=== PATIENT | female | born 1950 | race Caucasian/White ===

== ENCOUNTER → 2017-04-12 | Outpatient (CLI) | payer MEDICARE, OTHER ==
--- NOTE | 2017-04-15 10:00 | RAD ---
DATE: 04/12/2017 EXAM: MAMMO FARHAD SCREENING BILATERAL HISTORY: Asymptomatic screening mammogram. COMPARISON: Prior mammogram from 03/16/2016, 06/30/2010 This study was interpreted with the benefit of Computerized Aided Detection (CAD). The breast parenchyma shows scattered fibroglandular densities. Breast parenchyma level B. FINDINGS: Bilateral CC and MLO views of the breasts were performed. 3-D tomosynthesis of each breast was performed in CC and MLO projections. Right breast: There are no suspicious microcalcifications, masses or areas of architectural distortion. Left breast: There are no suspicious microcalcifications, masses or areas of architectural distortion. Findings are stable from prior mammogram. IMPRESSION: Negative bilateral mammogram. BI-RADS CATEGORY: 1 NEGATIVE RECOMMENDED FOLLOW-UP: 12M 12 MONTH FOLLOW-UP PQRS compliance statement: Patient information was entered into a reminder system with a target due date 04/12/2018 for the next mammogram. Mammography is a sensitive method for finding small breast cancers, but it does not detect them all and is not a substitute for careful clinical examination. A negative mammogram does not negate a clinically suspicious finding and should not result in delay in biopsying a clinically suspicious abnormality. "Our facility is accredited by the [employer] Mammography Program."
== END | disposition home or self-care (01) ==
LOC: MAMMO 15:16
PROVIDERS: ATTEND Physician Assistant Medical
DX: Z12.31 Encounter for screening mammogram for malignant neoplasm of breast (principal)
CPT/HCPCS: 77063; 77067

== ENCOUNTER → 2017-06-28 | Outpatient (CLI) | payer MEDICARE, OTHER ==
[2017-06-28 12:37] LABS: BASO % 1 % (0-3); EOS # 0.6 x10^3/uL (0.0-0.7); EOS % 11 % (0-3); HEMATOCRIT 44.2 % (36.0-47.0); HEMOGLOBIN 15.3 g/dL (12.0-15.5); LYMPH # 1.3 x10^3/uL (1.0-4.8); LYMPH % 21 % (24-48); MEAN CORPUSCULAR HEMOGLOBIN 35 pg (25-35); MEAN CORPUSCULAR HGB CONC 35 g/dL (31-37); MEAN CORPUSCULAR VOLUME 100 fL (79-100); MONO # 0.4 x10^3/uL (0.0-1.1); MONO % 7 % (0-9); NEUT # 3.7 x10^3uL (1.8-7.7); NEUT % 61 % (31-73); PLATELET COUNT 322 x10^3/uL (140-400); RED BLOOD COUNT 4.42 x10^6/uL (3.50-5.40); RED CELL DISTRIBUTION WIDTH 12.9 % (11.5-14.5); WHITE BLOOD COUNT 6.1 x10^3/uL (4.0-11.0)
[2017-06-28 12:46] LABS: ALBUMIN 3.7 g/dL (3.4-5.0); ALBUMIN/GLOBULIN RATIO 0.8 (1.0-1.7); CALCIUM 10.6 mg/dL (8.5-10.1); CREATININE 0.8 mg/dL (0.6-1.0); POTASSIUM 4.1 mmol/L (3.5-5.1); TOTAL BILIRUBIN 0.5 mg/dL (0.2-1.0); TOTAL PROTEIN 8.3 g/dL (6.4-8.2)
[2017-06-30 13:11] LABS: HCV ULTRA QUANT PCR HCV Not Detected IU/mL (.)
== END | disposition home or self-care (01) ==
LOC: LAB 11:05
PROVIDERS: ATTEND Internal Medicine Gastroenterology
DX: B19.20 Unspecified viral hepatitis C without hepatic coma (principal)
CPT/HCPCS: 36415; 80053; 85025; 87521

== ENCOUNTER 2017-08-18 07:32 | Emergency (ER) | payer MEDICARE, OTHER ==
[~2017-08-18] VITALS: Ht 157.5 cm; Wt 72.6 kg
[2017-08-18 07:42] VITALS: BP 132/90
[2017-08-18] MEDS ORDERED: IV NORMAL SALINE 1,000ML 1,000 ML IV ONE (08:00)
--- NOTE | 2017-08-18 08:15 | ED.ADGEN ---
Past History Past Medical History: Anxiety, Hypertension, Hepatitis Past Surgical History: Tonsillectomy, Tubal ligation Alcohol Use: None Drug Use: None Adult General HPI HPI Patient is a 66 year old female who presents with dizziness and nausea. She had onset of symptoms yesterday. Her symptoms began suddenly. She describes vertiginous symptoms that do precipitate some nausea. She had a couple episodes of emesis described to be green liquid. She did not have chest pain or shortness of breath. She did not have any recent illness. She does have a known history of hepatitis C and is currently treated. She does also describe a occipital headache that began along the same time. Her symptoms are positional. She does have some relief when she holds still or lays down but she does also have intermittent symptoms of vertigo while at rest. Review of Systems Review of Systems Constitutional: Denies fever or chills Eyes: Denies change in visual acuity HENT: Denies nasal congestion or sore throat Respiratory: Denies cough or shortness of breath Cardiovascular: No additional information not addressed in HPI GI: Denies abdominal pain : Denies dysuria or hematuria Musculoskeletal: Denies back pain Integument: Denies rash or skin lesions Neurologic: Denies headache, focal weakness All other systems were reviewed and found to be within normal limits, except as documented in this note. Current Medications Current Medications Current Medications Medications (Trade) Dose Ordered Sig/Deirdre Start Time Stop Time Status Last Admin Dose Admin Diphenhydramine HCl (Benadryl) 12.5 mg 1X ONCE 08/18/17 08:20 08/18/17 08:22 DC 08/18/17 08:13 12.5 MG Iohexol (Omnipaque 300 Mg/ml) 75 ml 1X ONCE 08/18/17 09:00 08/18/17 09:01 DC 08/18/17 09:04 75 ML Prochlorperazine Edisylate (Compazine) 10 mg 1X ONCE 08/18/17 08:20 08/18/17 08:22 DC 08/18/17 08:13 10 MG Sodium Chloride 1,000 ml @ 1,000 mls/hr 1X ONCE 08/18/17 08:00 08/18/17 08:59 DC 08/18/17 08:14 1,000 MLS/HR Allergies Allergies Allergies Coded Allergies Type Severity Reaction Last Updated Verified No Known Drug Allergies 08/06/14 No Physical Exam Physical Exam Constitutional: Well developed, well nourished, no acute distress HENT: Normocephalic, atraumatic, bilateral external ears normal, oropharynx moist, TM's joy, intact with light reflex Eyes: PERRLA, EOMI, conjunctiva normal, no discharge Neck: Normal range of motion, no tenderness, supple Cardiovascular:Heart rate regular rhythm, no murmur Lungs & Thorax: Bilateral breath sounds clear to auscultation Abdomen: Bowel sounds normal, soft Skin: Warm, dry, no erythema Extremities: no edema Neurologic: Alert and oriented X 3, CN II-XII intact bilaterally. Finger-to- nose intact. Normal steady gait Psychologic: Affect normal Current Patient Data Vital Signs Vital Signs Date Time Temp Pulse Resp B/P (MAP) Pulse Ox O2 Delivery O2 Flow Rate FiO2 08/18/17 07:42 97.8 72 20 93 Room Air Lab Results Laboratory Tests Test 08/18/17 08:00 White Blood Count 7.2 x10^3/uL (4.0-11.0) Red Blood Count 4.61 x10^6/uL (3.50-5.40) Hemoglobin 16.2 g/dL (12.0-15.5) H Hematocrit 45.7 % (36.0-47.0) Mean Corpuscular Volume 99 fL (79-100) Mean Corpuscular Hemoglobin 35 pg (25-35) Mean Corpuscular Hemoglobin Concent 35 g/dL (31-37) Red Cell Distribution Width 15.1 % (11.5-14.5) H Platelet Count 330 x10^3/uL (140-400) Neutrophils (%) (Auto) 80 % (31-73) H Lymphocytes (%) (Auto) 13 % (24-48) L Monocytes (%) (Auto) 6 % (0-9) Eosinophils (%) (Auto) 0 % (0-3) Basophils (%) (Auto) 1 % (0-3) Neutrophils # (Auto) 5.8 x10^3uL (1.8-7.7) Lymphocytes # (Auto) 0.9 x10^3/uL (1.0-4.8) L Monocytes # (Auto) 0.4 x10^3/uL (0.0-1.1) Eosinophils # (Auto) 0.0 x10^3/uL (0.0-0.7) Basophils # (Auto) 0.1 x10^3/uL (0.0-0.2) Sodium Level 135 mmol/L (136-145) L Potassium Level 3.7 mmol/L (3.5-5.1) Chloride Level 101 mmol/L (98-107) Carbon Dioxide Level 27 mmol/L (21-32) Anion Gap 7 (6-14) Blood Urea Nitrogen 14 mg/dL (7-20) Creatinine 0.9 mg/dL (0.6-1.0) Estimated GFR (Cockcroft-Gault) 62.8 Glucose Level 137 mg/dL (70-99) H Calcium Level 10.4 mg/dL (8.5-10.1) H EKG EKG [] Radiology/Procedures Radiology/Procedures Findings: Brain: The joy and white matter appears symmetrical. There is no mass effect, extra-axial fluid collections or hydrocephalus. There is no gross bleed. Distal carotid arteries: normal caliber Vertebral basilar system normal Major cerebral arteries: normal Impression: no acute findings end impression CTA neck with contrast: Findings: Aortic arch and origin of great vessels: The left common carotid artery arises from a common trunk with the brachiocephalic artery. Common carotid arteries: Right: normal Left: normal Internal carotid arteries: Right: normal Left: normal Vertebral basilar system normal Impression: No significant stenosis. Course & Med Decision Making Course & Med Decision Making Pertinent Labs and Imaging studies reviewed. (See chart for details) Patient is seen and examined. She does present with symptoms that seem primarily most consistent with benign positional vertigo. Dunn-Hallpike maneuver was performed and she did have ice diagnosis bilaterally although it was with a fast her pulse to the right and lasted longer to the right. After several maneuvers, the nystatin this was definitely fatigable. The maneuver also did precipitate her symptoms. Head impulse tests, however, was normal. The patient did not have any nystagmus or changes with this test. Negative head impulse tests decreases likelihood for peripheral lesion as a source for the patient's symptoms. Subsequently, and because the patient was having occipital headache, CT angiogram of the head and neck were completed. This study was negative and as documented above. Ultimately, the patient's symptoms were much improved after a dose of Compazine and Benadryl in the ER. She received 1 L of normal saline. She was discharged home with a prescription for meclizine to use as needed for vertiginous symptoms. She is advised to follow-up with her primary care doctor or return to the ER for any new or worsening symptoms. Final Impression Final Impression Vertigo Ana Disclaimer Dragon Disclaimer This electronic medical record was generated, in whole or in part, using a voice recognition dictation system. WILLY HARRIS DO Aug 18, 2017 08:15
[2017-08-18 08:17] LABS: BASO # 0.1 x10^3/uL (0.0-0.2); BASO % 1 % (0-3); EOS % 0 % (0-3); HEMATOCRIT 45.7 % (36.0-47.0); HEMOGLOBIN 16.2 g/dL (12.0-15.5); LYMPH # 0.9 x10^3/uL (1.0-4.8); LYMPH % 13 % (24-48); MEAN CORPUSCULAR HEMOGLOBIN 35 pg (25-35); MEAN CORPUSCULAR HGB CONC 35 g/dL (31-37); MEAN CORPUSCULAR VOLUME 99 fL (79-100); MONO # 0.4 x10^3/uL (0.0-1.1); MONO % 6 % (0-9); NEUT # 5.8 x10^3uL (1.8-7.7); NEUT % 80 % (31-73); PLATELET COUNT 330 x10^3/uL (140-400); RED BLOOD COUNT 4.61 x10^6/uL (3.50-5.40); RED CELL DISTRIBUTION WIDTH 15.1 % (11.5-14.5); WHITE BLOOD COUNT 7.2 x10^3/uL (4.0-11.0)
[2017-08-18] MEDS ORDERED: diphenhydrAMINE 50 MG/ML VIAL IVP ONE (08:20)
[2017-08-18] MEDS ORDERED: PROCHLORPERAZINE 10 MG/2 ML VIAL. IV ONE (08:20)
[2017-08-18 08:24] LABS: CALCIUM 10.4 mg/dL (8.5-10.1); CREATININE 0.9 mg/dL (0.6-1.0); GFR 62.8; POTASSIUM 3.7 mmol/L (3.5-5.1)
[2017-08-18] MEDS ORDERED: IOHEXOL 300 MG/ML 75 ML VIAL. IV ONE (09:00)
--- NOTE | 2017-08-18 09:37 | RAD ---
CTA head and CTA neck with contrast History: Headache and dizziness with vertigo Technique: Axial images were obtained of the head and neck after the intravenous administration of 75 mL of Omni 300 IV contrast. Multiplanar reconstruction was performed on an independent work station including MIP imaging and 3D angiographic imaging. Comparison: none CTA head with contrast. Findings: Brain: The joy and white matter appears symmetrical. There is no mass effect, extra-axial fluid collections or hydrocephalus. There is no gross bleed. Distal carotid arteries: normal caliber Vertebral basilar system normal Major cerebral arteries: normal Impression: no acute findings end impression CTA neck with contrast: Findings: Aortic arch and origin of great vessels: The left common carotid artery arises from a common trunk with the brachiocephalic artery. Common carotid arteries: Right: normal Left: normal Internal carotid arteries: Right: normal Left: normal Vertebral basilar system normal Impression: No significant stenosis. PQRS Compliance Statement - Stenosis calculations for CT, MR and conventional angiography are based upon measurement of the distal ICA diameter in accordance with the NASCET methodology. Stenosis calculations for carotid ultrasound studies are derived from validated velocity criteria which are known to correlate with the NASCET methodology. PQRS Compliance Statement: One or more of the following individualized dose reduction techniques were utilized for this examination: 1. Automated exposure control 2. Adjustment of the mA and/or kV according to patient size 3. Use of iterative reconstruction technique Electronically signed by: Lamin Peoples III, MD (08/18/2017 9:34 AM) [facility]
[2017-08-18] MEDS ORDERED: MECL25TA3 PO (09:48)
== END 2017-08-18 09:58 | disposition home or self-care (01) ==
LOC: ER 07:32
DX: R42 Dizziness and giddiness (principal); R11.2 Nausea with vomiting, unspecified; R51 Headache; F41.9 Anxiety disorder, unspecified; I10 Essential (primary) hypertension
CPT/HCPCS: 36415; 70496; 70498; 80048; 85025; 96361; 96374; 96375; 99285; J0780; J1200; Q9967; J7030

== ENCOUNTER → 2017-08-18 | Outpatient (CLI) | payer MEDICARE, OTHER ==
[~2017-08-18] MED LIST: MECL25TA3 PO
[2017-08-18 07:42] VITALS: BP 132/90
[2017-08-18 09:39] LABS: BASO % 1 % (0-3); EOS % 0 % (0-3); HEMATOCRIT 46.1 % (36.0-47.0); HEMOGLOBIN 16.2 g/dL (12.0-15.5); LYMPH # 0.9 x10^3/uL (1.0-4.8); LYMPH % 12 % (24-48); MEAN CORPUSCULAR HEMOGLOBIN 35 pg (25-35); MEAN CORPUSCULAR HGB CONC 35 g/dL (31-37); MEAN CORPUSCULAR VOLUME 99 fL (79-100); MONO # 0.4 x10^3/uL (0.0-1.1); MONO % 6 % (0-9); NEUT # 5.9 x10^3uL (1.8-7.7); NEUT % 81 % (31-73); PLATELET COUNT 345 x10^3/uL (140-400); RED BLOOD COUNT 4.67 x10^6/uL (3.50-5.40); RED CELL DISTRIBUTION WIDTH 14.9 % (11.5-14.5); WHITE BLOOD COUNT 7.3 x10^3/uL (4.0-11.0)
[2017-08-18 09:44] LABS: ALBUMIN 4.1 g/dL (3.4-5.0); ALBUMIN/GLOBULIN RATIO 0.9 (1.0-1.7); CALCIUM 10.3 mg/dL (8.5-10.1); CREATININE 0.9 mg/dL (0.6-1.0); GFR 62.8; POTASSIUM 3.7 mmol/L (3.5-5.1); TOTAL BILIRUBIN 0.6 mg/dL (0.2-1.0); TOTAL PROTEIN 8.5 g/dL (6.4-8.2)
[2017-08-20 17:16] LABS: HCV ULTRA QUANT PCR HCV Not Detected IU/mL (.)
== END | disposition home or self-care (01) ==
LOC: LAB 08:34
PROVIDERS: ATTEND Internal Medicine Gastroenterology
DX: B19.20 Unspecified viral hepatitis C without hepatic coma (principal)
CPT/HCPCS: 36415; 80053; 85025; 87521

== ENCOUNTER → 2017-12-10 | Outpatient (CLI) | payer MEDICARE, OTHER ==
[2017-12-10 15:07] LABS: ALBUMIN 3.9 g/dL (3.4-5.0); CALCIUM 10.3 mg/dL (8.5-10.1); GFR 55.5; POTASSIUM 4.2 mmol/L (3.5-5.1); TOTAL BILIRUBIN 0.3 mg/dL (0.2-1.0); TOTAL PROTEIN 7.8 g/dL (6.4-8.2)
[2017-12-10 15:10] LABS: BASO % 1 % (0-3); EOS # 0.2 x10^3/uL (0.0-0.7); EOS % 3 % (0-3); HEMOGLOBIN 14.4 g/dL (12.0-15.5); LYMPH % 18 % (24-48); MEAN CORPUSCULAR HEMOGLOBIN 35 pg (25-35); MEAN CORPUSCULAR HGB CONC 34 g/dL (31-37); MEAN CORPUSCULAR VOLUME 102 fL (79-100); MONO # 0.4 x10^3/uL (0.0-1.1); MONO % 6 % (0-9); NEUT % 72 % (31-73); PLATELET COUNT 291 x10^3/uL (140-400); RED BLOOD COUNT 4.12 x10^6/uL (3.50-5.40); RED CELL DISTRIBUTION WIDTH 13.4 % (11.5-14.5); WHITE BLOOD COUNT 5.6 x10^3/uL (4.0-11.0)
== END | disposition home or self-care (01) ==
LOC: LAB 13:56
PROVIDERS: ATTEND Internal Medicine Gastroenterology
DX: B19.20 Unspecified viral hepatitis C without hepatic coma (principal)
CPT/HCPCS: 80053; 85025

== ENCOUNTER 2018-04-12 15:30 | Emergency (ER) | payer MEDICARE, OTHER ==
[~2018-04-12] VITALS: Ht 157.5 cm; Wt 72.0 kg
[2018-04-12 16:21] LABS: BASO # 0.1 x10^3/uL (0.0-0.2); BASO % 1 % (0-3); EOS # 0.2 x10^3/uL (0.0-0.7); EOS % 2 % (0-3); HEMATOCRIT 48.3 % (36.0-47.0); HEMOGLOBIN 16.5 g/dL (12.0-15.5); LYMPH % 9 % (24-48); MEAN CORPUSCULAR HEMOGLOBIN 35 pg (25-35); MEAN CORPUSCULAR HGB CONC 34 g/dL (31-37); MEAN CORPUSCULAR VOLUME 101 fL (79-100); MONO # 0.6 x10^3/uL (0.0-1.1); MONO % 6 % (0-9); NEUT # 8.7 x10^3uL (1.8-7.7); NEUT % 82 % (31-73); PLATELET COUNT 394 x10^3/uL (140-400); RED BLOOD COUNT 4.78 x10^6/uL (3.50-5.40); RED CELL DISTRIBUTION WIDTH 13.7 % (11.5-14.5); WHITE BLOOD COUNT 10.7 x10^3/uL (4.0-11.0)
[2018-04-12] MEDS ORDERED: ONDANSETRON PF 4 MG/2 ML VIAL. IV ONE (16:30)
[2018-04-12] MEDS ORDERED: IV NORMAL SALINE 1,000ML 1,000 ML IV ONE (16:30)
--- NOTE | 2018-04-12 16:34 | PHYS DOC ---
Past History Past Medical History: Anxiety, Hypertension, Hepatitis Past Surgical History: Tonsillectomy, Tubal ligation Smoking: Cigarettes Alcohol Use: None Drug Use: None Adult General Chief Complaint Chief Complaint: nausea and abdominal pain [facility] HPI Patient is a 67 year old female who presents with of nausea and abdominal pain. Patient states she had episodes of dizziness and constant nausea that started 2 weeks ago and her dizziness improved with meclizine but her nausea if not getting better. She complaining of intermittent episodes of lower abdominal pain as an aching pain with radiation to her back for the last 2 weeks that happened 2 or 3 times a day and getting worse with urination. She denies urinary frequency and dysuria. Patient states she had a few episodes of dry heaves today. Patient denies fever and chills, chest pain, shortness of breath, focal neuro deficit, headache. Review of Systems Review of Systems Constitutional: Denies fever or chills [] Eyes: Denies change in visual acuity, redness, or eye pain [] HENT: Denies nasal congestion or sore throat [] Respiratory: Denies cough or shortness of breath [] Cardiovascular: No additional information not addressed in HPI [] GI: Reports abdominal pain, nausea, vomiting, constipation, denies bloody stools or diarrhea [] : Denies dysuria or hematuria [] Musculoskeletal: Denies back pain or joint pain [] Integument: Denies rash or skin lesions [] Neurologic: Denies headache, focal weakness or sensory changes, reports dizziness [] Endocrine: Denies polyuria or polydipsia [] All other systems were reviewed and found to be within normal limits, except as documented in this note. Allergies Allergies Allergies Coded Allergies Type Severity Reaction Last Updated Verified No Known Drug Allergies 08/06/14 No Physical Exam Physical Exam Constitutional: Well developed, well nourished, mild distress, non-toxic appearance. [] HENT: Normocephalic, atraumatic, oropharynx moist, no oral exudates, nose normal. [] Eyes: PERRLA, EOMI, conjunctiva normal, no discharge. [] Neck: Normal range of motion, no tenderness, supple, no stridor. [] Cardiovascular:Heart rate regular rhythm, no murmur [] Lungs & Thorax: Bilateral breath sounds clear to auscultation [] Abdomen: Bowel sounds normal, soft, no tenderness, no masses, no pulsatile masses. [] Skin: Warm, dry, no erythema, no rash. [] Back: No tenderness, no CVA tenderness. [] Extremities: No tenderness, no cyanosis, no clubbing, ROM intact, no edema. [] Neurologic: Alert and oriented X 3, normal motor function, normal sensory function, no focal deficits noted. [] Psychologic: Affect normal, judgement normal, mood normal. [] EKG EKG EKG interpreted by me. EKG at 1635 showed normal sinus rhythm at rate of 93, left fourth axis, no acute ST and T-wave abnormalities. Radiology/Procedures Radiology/Procedures [address] [address] IMAGING REPORT Signed PATIENT: MARTINA CONDON ACCOUNT: [id number] : 1950 LOCATION: ER AGE: 67 SEX: F EXAM STATUS: PRE ER ORD. PHYSICIAN: HELIO CARMONA MD REASON: lower abdominal pain for 2 weeks PROCEDURE: CT ABDOMEN PELVIS WO CONTRAST CT head without contrast 04/12/2018. Reason for exam: Headache and dizziness. Noncontrast images were obtained. Exposure: One or more of the following individualized dose reduction techniques were utilized for this examination: 1. Automated exposure control 2. Adjustment of the mA and/or kV according to patient size 3. Use of iterative reconstruction technique. FINDINGS: There is no apparent intracranial hemorrhage or abnormal extra-axial fluid collection. No mass is seen. There is minimal patchy low attenuation in the cerebral white matter probably indicating chronic small vessel ischemic injury. No other area of abnormal density is identified. The ventricles and basilar cisterns are normally positioned. The sinuses and mastoid air cells appear clear. IMPRESSION: No acute intracranial abnormality. CT abdomen and pelvis without contrast 04/12/2018 Reason for exam: Right flank pain. History of stones. Noncontrast images were obtained. Exposure: One or more of the following individualized dose reduction techniques were utilized for this examination: 1. Automated exposure control 2. Adjustment of the mA and/or kV according to patient size 3. Use of iterative reconstruction technique. Comparison is made with a study of 08/06/2014. FINDINGS: There appears to be some emphysema. The lung bases otherwise are clear. There are probably small cysts in the liver. The liver and spleen otherwise appear normal. There is a large gallstone in the gallbladder without CT evidence of cholecystitis. The kidneys show no apparent mass or obstruction. The adrenal glands are not enlarged. The pancreas appears normal. No retroperitoneal or mesenteric adenopathy is seen. There are a few small retroperitoneal lymph nodes similar to the prior exam. No new abdominal mass or inflammatory process is seen. Images through the pelvis show no apparent distal ureteral stone or obstruction. The bladder was not well-distended, but appears normal. No enlarged pelvic or inguinal lymph nodes are seen. There is no apparent pelvic soft tissue mass. There is suggestion of thickening of the wall of the distal descending colon extending to the proximal sigmoid colon, where a large piece of feces is seen. There is no apparent mass here. There are diverticula in the segment distal to this, but not within the abnormal appearing segment. No extraluminal fluid or gas collection is seen. The appendix appears relatively prominent in caliber and thick-walled, although there is air in the lumen and no obvious adjacent inflammation to suggest appendicitis. IMPRESSION: No apparent renal or ureteral stone. There is suggestion of inflammation of the left colon near the junction of descending and sigmoid segments. No obstructing mass is seen here, although a stricture is possible. No other cause for pain is identified Chest PA and lateral: There is suggestion of minimal atelectasis at the right lung base. The lungs otherwise are clear and no pleural fluid is seen. Heart size is normal. IMPRESSION: No significant acute abnormality. . Electronically signed by: Neha Darby Jr., MD (04/12/2018 5:10 PM) [facility] [place] DICTATED AND SIGNED BY: ENHA DARBY Jr, MD DATE: 04/12/181658 CC: HELIO CARMONA MD; INA ROWELL ~ [address] [address] IMAGING REPORT Signed PATIENT: MARTINA CONDON ACCOUNT: [id number] : 1950 LOCATION: ER AGE: 67 SEX: F EXAM STATUS: PRE ER ORD. PHYSICIAN: HELIO CARMONA MD REASON: dizziness PROCEDURE: CHEST PA & LATERAL CT head without contrast 04/12/2018. Reason for exam: Headache and dizziness. Noncontrast images were obtained. Exposure: One or more of the following individualized dose reduction techniques were utilized for this examination: 1. Automated exposure control 2. Adjustment of the mA and/or kV according to patient size 3. Use of iterative reconstruction technique. FINDINGS: There is no apparent intracranial hemorrhage or abnormal extra-axial fluid collection. No mass is seen. There is minimal patchy low attenuation in the cerebral white matter probably indicating chronic small vessel ischemic injury. No other area of abnormal density is identified. The ventricles and basilar cisterns are normally positioned. The sinuses and mastoid air cells appear clear. IMPRESSION: No acute intracranial abnormality. CT abdomen and pelvis without contrast 04/12/2018 Reason for exam: Right flank pain. History of stones. Noncontrast images were obtained. Exposure: One or more of the following individualized dose reduction techniques were utilized for this examination: 1. Automated exposure control 2. Adjustment of the mA and/or kV according to patient size 3. Use of iterative reconstruction technique. Comparison is made with a study of 08/06/2014. FINDINGS: There appears to be some emphysema. The lung bases otherwise are clear. There are probably small cysts in the liver. The liver and spleen otherwise appear normal. There is a large gallstone in the gallbladder without CT evidence of cholecystitis. The kidneys show no apparent mass or obstruction. The adrenal glands are not enlarged. The pancreas appears normal. No retroperitoneal or mesenteric adenopathy is seen. There are a few small retroperitoneal lymph nodes similar to the prior exam. No new abdominal mass or inflammatory process is seen. Images through the pelvis show no apparent distal ureteral stone or obstruction. The bladder was not well-distended, but appears normal. No enlarged pelvic or inguinal lymph nodes are seen. There is no apparent pelvic soft tissue mass. There is suggestion of thickening of the wall of the distal descending colon extending to the proximal sigmoid colon, where a large piece of feces is seen. There is no apparent mass here. There are diverticula in the segment distal to this, but not within the abnormal appearing segment. No extraluminal fluid or gas collection is seen. The appendix appears relatively prominent in caliber and thick-walled, although there is air in the lumen and no obvious adjacent inflammation to suggest appendicitis. IMPRESSION: No apparent renal or ureteral stone. There is suggestion of inflammation of the left colon near the junction of descending and sigmoid segments. No obstructing mass is seen here, although a stricture is possible. No other cause for pain is identified Chest PA and lateral: There is suggestion of minimal atelectasis at the right lung base. The lungs otherwise are clear and no pleural fluid is seen. Heart size is normal. IMPRESSION: No significant acute abnormality. . Electronically signed by: Neah Darby Jr., MD (04/12/2018 5:10 PM) [facility] [place] DICTATED AND SIGNED BY: NEHA DARBY Jr, MD DATE: 04/12/18 8202 CC: HELIO CARMONA MD; INA ROWELL ~ Course & Med Decision Making Course & Med Decision Making Pertinent Labs and Imaging studies reviewed. (See chart for details) Evaluation of patient in ER showed 67-year-old female patient with complaining of nausea and abdominal pain intermittently for 2 weeks. Patient had unremarkable physical exam except for anxiety. Labs showed a calcium of 11.2 with previous additional calcium of 10.3. UA showed UTI. Patient had elevation of hemoglobin and currently isn't smoking. Patient treated with IV fluid because of positive orthostatic vitals. Patient also had Rocephin and Zofran and felt better. Patient states she doesn't take supplemental calcium and instructed to follow-up with her primary care physician for evaluation of possible hyperparathyroidism. Dragon Disclaimer Dragon Disclaimer This electronic medical record was generated, in whole or in part, using a voice recognition dictation system. Departure Departure: Impression: Primary Impression: Urinary tract infection Additional Impressions: Hypercalcemia Chronic nausea Constipation Dizziness Tobacco abuse Tobacco abuse counseling Disposition: HOME, SELF-CARE (at 1730) Condition: IMPROVED Referrals: INA ROWELL (PCP) Patient Instructions: Hypercalcemia, Nausea, Adult, Smoking Cessation, Tips For Success, Urinary Tract Infection Additional Instructions: Drink plenty of liquids Follow-up with your primary care physician in 2 or 3 days for evaluation of high calcium Return to ER if not getting better Scripts Metoclopramide Hcl (REGLAN) 10 Mg Tablet 10 MG PO QID for nausea, #20 TAB Prov: HELIO CARMONA MD 04/12/18 Ciprofloxacin Hcl (CIPRO) 250 Mg Tablet 1 TAB PO BID for urinary tract infection, #14 TAB Prov: HELIO CARMONA MD 04/12/18 Problem Qualifiers Primary Impression: Urinary tract infection Urinary tract infection type: acute cystitis Hematuria presence: without hematuria Qualified Codes: N30.00 - Acute cystitis without hematuria Additional Impressions: Constipation Constipation type: slow transit constipation Qualified Codes: K59.01 - Slow transit constipation HELIO CARMONA MD Apr 12, 2018 16:34
[2018-04-12 16:43] LABS: ALBUMIN 4.2 g/dL (3.4-5.0); ALBUMIN/GLOBULIN RATIO 0.9 (1.0-1.7); CALCIUM 11.2 mg/dL (8.5-10.1); GFR 55.5; POTASSIUM 4.1 mmol/L (3.5-5.1); TOTAL BILIRUBIN 0.4 mg/dL (0.2-1.0); TOTAL PROTEIN 8.9 g/dL (6.4-8.2)
[2018-04-12 16:48] LABS: BILIRUBIN,URINE NEG (NEG); CLARITY,URINE HAZY; COLOR,URINE YELLOW; GLUCOSE,URINE NEG (NEG); NITRITE,URINE NEG (NEG); UROBILINOGEN,URINE 0.2 mg/dL (0.2 mg/dL)
[2018-04-12 16:49] LABS: BACTERIA,URINE FEW /HPF (0-FEW); RBC,URINE OCC /HPF (0-2); SQUAMOUS EPITHELIAL CELL,UR OCC /LPF
--- NOTE | 2018-04-12 17:13 | RAD ---
CT head without contrast 04/12/2018. Reason for exam: Headache and dizziness. Noncontrast images were obtained. Exposure: One or more of the following individualized dose reduction techniques were utilized for this examination: 1. Automated exposure control 2. Adjustment of the mA and/or kV according to patient size 3. Use of iterative reconstruction technique. FINDINGS: There is no apparent intracranial hemorrhage or abnormal extra-axial fluid collection. No mass is seen. There is minimal patchy low attenuation in the cerebral white matter probably indicating chronic small vessel ischemic injury. No other area of abnormal density is identified. The ventricles and basilar cisterns are normally positioned. The sinuses and mastoid air cells appear clear. IMPRESSION: No acute intracranial abnormality. CT abdomen and pelvis without contrast 04/12/2018 Reason for exam: Right flank pain. History of stones. Noncontrast images were obtained. Exposure: One or more of the following individualized dose reduction techniques were utilized for this examination: 1. Automated exposure control 2. Adjustment of the mA and/or kV according to patient size 3. Use of iterative reconstruction technique. Comparison is made with a study of 08/06/2014. FINDINGS: There appears to be some emphysema. The lung bases otherwise are clear. There are probably small cysts in the liver. The liver and spleen otherwise appear normal. There is a large gallstone in the gallbladder without CT evidence of cholecystitis. The kidneys show no apparent mass or obstruction. The adrenal glands are not enlarged. The pancreas appears normal. No retroperitoneal or mesenteric adenopathy is seen. There are a few small retroperitoneal lymph nodes similar to the prior exam. No new abdominal mass or inflammatory process is seen. Images through the pelvis show no apparent distal ureteral stone or obstruction. The bladder was not well-distended, but appears normal. No enlarged pelvic or inguinal lymph nodes are seen. There is no apparent pelvic soft tissue mass. There is suggestion of thickening of the wall of the distal descending colon extending to the proximal sigmoid colon, where a large piece of feces is seen. There is no apparent mass here. There are diverticula in the segment distal to this, but not within the abnormal appearing segment. No extraluminal fluid or gas collection is seen. The appendix appears relatively prominent in caliber and thick-walled, although there is air in the lumen and no obvious adjacent inflammation to suggest appendicitis. IMPRESSION: No apparent renal or ureteral stone. There is suggestion of inflammation of the left colon near the junction of descending and sigmoid segments. No obstructing mass is seen here, although a stricture is possible. No other cause for pain is identified Chest PA and lateral: There is suggestion of minimal atelectasis at the right lung base. The lungs otherwise are clear and no pleural fluid is seen. Heart size is normal. IMPRESSION: No significant acute abnormality. . Electronically signed by: John Darby Jr., MD (04/12/2018 5:10 PM) [facility] [place] [facility] [place]
[2018-04-12] MEDS ORDERED: cefTRIAXone SODIUM 1 GM VIAL ONE (17:19)
[2018-04-12] MEDS ORDERED: IV NORMAL SALINE 50ML 0 ML ONE (17:19)
[2018-04-12] MEDS ORDERED: METO10TA81 PO (17:33)
[2018-04-12] MEDS ORDERED: CIPR250T30 PO (17:33)
[2018-04-12 17:50] VITALS: BP 163/129
[2018-04-12] MEDS ORDERED: KETOROLAC 30 MG/ML VIAL. IV ONE (18:00)
--- NOTE | 2018-04-15 12:20 | EKG ---
[address] [address] Test Date: 2018-04-12 Test Time: 16:35:35 Pat Name: MARTINA CONDON Department: Room: Gender: F Strategy Analyst: MACI : 1950 Requested By: HELIO CARMONA Order Number: [id number] Reading MD: Shaun Viera MD Measurements Intervals Pinson Rate: 93 P: 56 ND: 144 QRS: -23 QRSD: 78 T: 38 QT: 342 QTc: 428 Interpretive Statements SINUS RHYTHM Electronically Signed On 04-15-2018 15:17:49 MAINTENANCE HELPER UTILITY ENGINEER by Shaun Viera MD
== END 2018-04-12 17:53 | disposition home or self-care (01) ==
LOC: ER 15:30
DX: N30.00 Acute cystitis without hematuria (principal); E83.52 Hypercalcemia; R11.0 Nausea; K59.01 Slow transit constipation; R42 Dizziness and giddiness; F17.210 Nicotine dependence, cigarettes, uncomplicated; F41.9 Anxiety disorder, unspecified; R51 Headache; Z71.6 Tobacco abuse counseling; Z98.51 Tubal ligation status
CPT/HCPCS: 36415; 70450; 71046; 74176; 80053; 81001; 82550; 83690; 83735; 83880; 84484; 85025; 87086; 93005; 96365; 96375; 99284; J0696; J1885; J2405; 87186; J7030

== ENCOUNTER → 2019-09-15 | Outpatient (CLI) | payer MEDICARE, OTHER ==
[~2019-09-15] MED LIST changes: +CIPR250T30 PO; +MECL-75 PO; -MECL25TA3 PO; +METO10TA81 PO
--- NOTE | 2019-09-21 13:14 | RAD ---
DATE: 09/15/2019 1:33 PM EXAM: MAMMO FARHAD SCREENING BILATERAL HISTORY: Screening COMPARISON: 03/16/2016, 04/12/2017 and 05/21/2018 Bilateral CC and MLO views of the breasts were performed. Bilateral breast tomosynthesis was performed in CC and MLO projections. This study was interpreted with the benefit of Computerized Aided Detection (CAD). FINDINGS: Breast Density: SCATTERED The breast parenchyma shows scattered fibroglandular densities. Breast parenchyma level B No suspicious masses, microcalcifications or architectural distortion is present to suggest malignancy in either breast. The visualized axillae are unremarkable. IMPRESSION: No mammographic evidence of malignancy. BI-RADS CATEGORY: 1 NEGATIVE RECOMMENDED FOLLOW-UP: 12M 12 MONTH FOLLOW-UP Annual screening mammography is recommended, unless clinically indicated sooner based on symptoms or change in physical exam. PQRS compliance statement: Patient information was entered into a reminder system with a target due date for the next mammogram. Mammography is a sensitive method for finding small breast cancers, but it does not detect them all and is not a substitute for careful clinical examination. A negative mammogram does not negate a clinically suspicious finding and should not result in delay in biopsying a clinically suspicious abnormality. "Our facility is accredited by the [employer] Mammography [employer]."
== END | disposition home or self-care (01) ==
LOC: MAMMO 13:28
PROVIDERS: ATTEND Family Medicine
DX: Z12.31 Encounter for screening mammogram for malignant neoplasm of breast (principal)
CPT/HCPCS: 77063; 77067

== ENCOUNTER → 2020-09-16 | Outpatient (CLI) | payer MEDICARE, OTHER ==
--- NOTE | 2020-09-16 15:15 | RAD ---
EXAM: Bilateral digital screening mammogram with tomosynthesis. HISTORY: 70-year-old female presents for screening mammography. TECHNIQUE: Full-field digital craniocaudal and mediolateral oblique 2D and 3D tomosynthesis images of both breasts are obtained for evaluation. Computer aided detection was applied. COMPARISON: A 40,020 BREAST PARENCHYMAL DENSITY: Level B - Scattered fibroglandular densities. FINDINGS: There is suggestion of architectural distortion within the 2:00 position of the left breast at mid depth centered approximately 6.0 cm from the nipple. There are stable areas of nodularity wit hin both breasts. There are few benign calcifications. IMPRESSION: BI-RADS Category 0: Incomplete. Additional imaging needed. RECOMMENDATION: Further evaluation with a full field true lateral view and spot compression views of the left breast to assess possible architectural distortion is recommended. Sonographic imaging can b e performed if deemed indicated based on additional mammographic findings. If your mammogram demonstrates that you have dense breast tissue, which could hide abnormalities, and if you have other risk factors for breast cancer that have been identified, you might benefit from s upplemental screening tests that may be suggested by your ordering physician. Dense breast tissue, i n and of itself, is a relatively common condition. This information is not provided to cause undue c oncern, but rather to raise your awareness and to promote discussion with your physician regarding th e presence of other risk factors, in addition to dense breast tissue. A report of your mammography re sults will be sent to you and your physician. You should contact your physician if you have any ques tions or concerns regarding this report. Mammography is a sensitive method for finding small breast cancers, but it does not detect them all a nd is not a substitute for careful clinical examination. A negative mammogram does not negate a clin ically suspicious finding and should not result in delay in biopsying a clinically suspicious abnorma lity. PQRS compliance statement - Patient information was entered into a reminder system with a target due date for the next mammogram. "Our facility is accredited by the [employer] Mammography [employer]." Electronically signed by: Court Smith MD (09/16/2020 3:13 PM) [id number]
== END ==
LOC: MAMMO 13:19
PROVIDERS: ATTEND Family Medicine
DX: Z12.31 Encounter for screening mammogram for malignant neoplasm of breast (principal); R92.1 Mammographic calcification found on diagnostic imaging of breast
CPT/HCPCS: 77063; 77067

== ENCOUNTER → 2020-10-14 | Outpatient (CLI) | payer MEDICARE, OTHER ==
--- NOTE | 2020-10-14 17:20 | RAD ---
CLINICAL INDICATION: MARTINA CONDON, who is 70 years of age, presents for further evaluation of an ar chitectural distortion in the left breast COMPARISON: Prior mammographic imaging dating 09/16/2020 09/15/2019 05/21/2018 TECHNIQUE: Diagnostic views of the left breast were obtained, utilizing digital technique. BREAST COMPOSITION: There are scattered fibroglandular densities. MAMMOGRAM FINDINGS: The architectural distortion only partially effaced on the spot compression views. Further evaluation with ultrasound was performed. ULTRASOUND FINDINGS: Targeted ultrasound of the mammographic area of concern was performed. 2:00 position: A near anechoic mass of circumscribed margins and internal homogeneous low level echoe s is present with parallel orientation and is of oval/round shape. There is no internal vascularity o n Doppler interrogation. It demonstrates posterior acoustic enhancement and measures 0.4 x 0.1 x 0.2 cm. Otherwise parenchyma tissue of normal echotexture. IMPRESSION: 1. Left breast probably benign architectural distortion for which follow up is recommended. RECOMMENDATION: In the absence of new clinical symptoms or change in physical exam, short term follow up diagnostic e xamination is recommended in 6 months to assess for interval stability. BIRADS 3: PROBABLY BENIGN Electronically signed by: Otis Chen MD (10/14/2020 5:17 PM) [id number]
== END ==
LOC: MAMMO 12:50
PROVIDERS: ATTEND Family Medicine
DX: N63.21 Unspecified lump in the left breast, upper outer quadrant (principal); R92.2 Inconclusive mammogram
CPT/HCPCS: 76642; 77065; G0279; 77061

== ENCOUNTER → 2021-04-14 | Outpatient (CLI) | payer MEDICARE, OTHER ==
--- NOTE | 2021-04-14 15:43 | RAD ---
DIAGNOSTIC LEFT BREAST MAMMOGRAM TECHNIQUE: 3-D and 2-D digital mammography of the left breast in the routine CC and MLO projections INDICATION: Short interval follow-up probably benign left breast architectural distortion. COMPARISON: 10/14/2020, 09/16/2020, 04/12/2017, 03/16/2016 FINDINGS: Breast Density: There are scattered areas of fibroglandular density. The previously described left outer breast architectural distortion is not redemonstrated. A circumsc ribed asymmetry in the lower left breast seen on MLO view is present for multiple years consistent wi th benign process. No suspicious calcifications or masses. IMPRESSION: 1. No imaging evidence of malignancy. ASSESSMENT: BI-RADS 2: Benign. RECOMMENDATION: Routine annual screening mammogram. Return to routine annual screening mammography Au 2021. The facility will notify the patient of the results via mail. Patient information will be entered int o the mammography reminder system with a target recall date for the next mammogram. A reminder letter will be generated by the facility. Electronically signed by: Champ Cruz MD (04/14/2021 3:40 PM) [id number]
== END ==
LOC: MAMMO 14:29
PROVIDERS: ATTEND Family Medicine
DX: R93.89 Abnormal findings on diagnostic imaging of other specified body structures (principal); R92.8 Other abnormal and inconclusive findings on diagnostic imaging of breast
CPT/HCPCS: 77065